=== PATIENT | female | born 1945 | race Caucasian/White ===

== ENCOUNTER → 2024-03-14 13:33 | Outpatient (REF) | payer MEDICARE, OTHER, SELFPAY | LOC: MRI 13:33 | PROVIDERS: ATTENDING PHYSICIAN Pain Medicine Interventional Pain Medicine; FAMILY PHYSICIAN Family Medicine | DX: M47.816 Spondylosis without myelopathy or radiculopathy, lumbar region (principal) | CPT/HCPCS: 72148 ==

== ENCOUNTER → 2024-07-11 06:21 | Day surgery (SDC) | payer MEDICARE, OTHER, SELFPAY | LOC: GI 06:21 | PROVIDERS: ATTENDING PHYSICIAN Internal Medicine Gastroenterology | DX: Z12.11 Encounter for screening for malignant neoplasm of colon (principal); D12.0 Benign neoplasm of cecum; D12.3 Benign neoplasm of transverse colon; Q43.8 Other specified congenital malformations of intestine; Z86.010 Personal history of colon polyps; Z80.0 Family history of malignant neoplasm of digestive organs | CPT/HCPCS: 45385; 88305 ==

== ENCOUNTER → 2024-08-03 09:13 | Outpatient (REF) | payer MEDICARE, OTHER, SELFPAY ==
[2024-08-03 10:27] LABS: % Basophils 0.7 % (0-2); % Eosinophils 0.9 % (0-6); % Immature Granulocytes 0.2 % (0-0.5); % Lymphocytes 36.9 % (20.5-51.1); % Monocytes 8.3 % (1.7-9.3); Absolute Eosinophils 0.1 10^3/uL (0-0.7); Absolute Lymphocytes 2.1 10^3/uL (1.2-3.4); Absolute Monocytes 0.5 10^3/uL (0.1-0.6); Hemoglobin 13.3 g/dL (12.0-16.0); Mean Corp Hgb Conc. 33.3 g/dL (33.0-37.0); Mean Corpuscular Hgb 31.1 pg (27.0-31.0); Mean Corpuscular Volume 93.5 fL (81.0-99.0); Mean Platelet Volume 10.3 fL (7.4-10.4); Nucleated Red Blood Cells % 0 %; Platelet Count 238 10^3/uL (130-400); Red Blood Cell Count 4.28 10^6/uL (4.20-5.40); Red Cell Dist. Width 12.6 % (11.5-14.5); White Blood Cell Count 5.7 10^3/uL (4.8-10.8)
[2024-08-03 10:52] LABS: ALT (SGPT) 20 U/L (0-35); AST (SGOT) 28 U/L (14-36); Albumin 4.2 g/dl (3.5-5.0); Alkaline Phosphatase 51 U/L (38-126); Blood Urea Nitrogen 20 mg/dl (7-17); Calcium 9.4 mg/dl (8.4-10.2); Carbon Dioxide 29 mmol/L (22-30); Chloride 104 mmol/L (98-107); Glucose 95 mg/dl (70-99); HDL Cholesterol 61 mg/dl; LDL Cholesterol, Calculated 146 mg/dl; Potassium 4.3 mmol/L (3.5-5.1); Sodium 142 mmol/L (135-145); Total Bilirubin 0.5 mg/dl (0.2-1.3); Total Cholesterol 226 mg/dl (50-199); Total Protein 7.2 g/dl (6.3-8.2); Triglyceride 98 mg/dl (10-149); Very Low Density Lipoprotein 19 mg/dl (0-30); eGFR > 60.00
== END ==
LOC: REG 09:13
PROVIDERS: ATTENDING PHYSICIAN Family Medicine
DX: I44.1 Atrioventricular block, second degree (principal); Z95.0 Presence of cardiac pacemaker; I10 Essential (primary) hypertension; Z13.220 Encounter for screening for lipoid disorders
CPT/HCPCS: 36415; 80053; 80061; 85025

== ENCOUNTER → 2024-08-22 13:05 | Outpatient (REF) | payer MEDICARE, OTHER, SELFPAY | LOC: HWWDC 13:05 | PROVIDERS: ATTENDING PHYSICIAN Family Medicine | DX: M81.0 Age-related osteoporosis without current pathological fracture (principal); Z12.31 Encounter for screening mammogram for malignant neoplasm of breast | CPT/HCPCS: 77063; 77067; 77080 ==

== ENCOUNTER → 2025-01-19 12:58 | Outpatient (REF) | payer MEDICARE, OTHER, SELFPAY | LOC: HWRCS 12:58 | PROVIDERS: ATTENDING PHYSICIAN Internal Medicine Cardiovascular Disease; FAMILY PHYSICIAN Family Medicine | DX: I44.1 Atrioventricular block, second degree (principal); I47.29 Other ventricular tachycardia | CPT/HCPCS: 93306 ==

== ENCOUNTER → 2025-04-04 16:27 | Outpatient (REF) | payer MEDICARE, OTHER, SELFPAY | LOC: RAD 16:27 | PROVIDERS: ATTENDING PHYSICIAN Family Medicine | DX: R14.0 Abdominal distension (gaseous) (principal); K59.00 Constipation, unspecified | CPT/HCPCS: 74019 ==

== ENCOUNTER 2025-05-05 06:22 | Day surgery (SDC) | payer MEDICARE, OTHER, SELFPAY | END 2025-05-05 10:31 | disposition home or self-care (01) | LOC: GI 06:22 | PROVIDERS: ATTENDING PHYSICIAN Internal Medicine Gastroenterology | DX: Z09 Encounter for follow-up examination after completed treatment for conditions other than malignant neoplasm (principal); K57.30 Diverticulosis of large intestine without perforation or abscess without bleeding; D12.2 Benign neoplasm of ascending colon; D12.5 Benign neoplasm of sigmoid colon; Z80.0 Family history of malignant neoplasm of digestive organs; Z86.0101 Personal history of adenomatous and serrated colon polyps | CPT/HCPCS: 45385; 88305 ==

== ENCOUNTER → 2025-07-12 09:52 | Outpatient (REF) | payer MEDICARE, OTHER, SELFPAY ==
[2025-07-12 10:55] LABS: ALT (SGPT) 22 U/L (0-35); AST (SGOT) 25 U/L (14-36); Albumin 4.2 g/dl (3.5-5.0); Alkaline Phosphatase 46 U/L (38-126); Blood Urea Nitrogen 15 mg/dl (7-17); Calcium 9.3 mg/dl (8.4-10.2); Carbon Dioxide 31 mmol/L (22-30); Chloride 105 mmol/L (98-107); Glucose 91 mg/dl (70-99); HDL Cholesterol 64 mg/dl; LDL Cholesterol, Calculated 136 mg/dl; Potassium 4.8 mmol/L (3.5-5.1); Sodium 139 mmol/L (135-145); Total Protein 7.2 g/dl (6.3-8.2); Very Low Density Lipoprotein 17 mg/dl (0-30); eGFR > 60.00
[2025-07-12 11:09] LABS: Vitamin D, 25-OH*** 61.8 ng/mL (30-80)
== END ==
LOC: REG 09:52
PROVIDERS: ATTENDING PHYSICIAN Family Medicine
DX: E78.00 Pure hypercholesterolemia, unspecified (principal); M81.0 Age-related osteoporosis without current pathological fracture; R79.89 Other specified abnormal findings of blood chemistry
CPT/HCPCS: 36415; 80053; 80061; 82306

== ENCOUNTER → 2025-08-07 13:02 | Outpatient (REF) | payer MEDICARE, OTHER, SELFPAY | LOC: HWWDC 13:02 | PROVIDERS: ATTENDING PHYSICIAN Family Medicine | DX: Z12.31 Encounter for screening mammogram for malignant neoplasm of breast (principal) | CPT/HCPCS: 77063; 77067 ==

== ENCOUNTER 2025-08-25 04:15 | Inpatient (IN) | payer MEDICARE, OTHER, SELFPAY ==
[2025-08-24 22:03] VITALS: BP 186/103
[2025-08-24 23:15] VITALS: BMI 25.4
[2025-08-24 23:21] LABS: Hematocrit 41.0 % (37.0-47.0); Hemoglobin 13.5 g/dL (12.0-16.0); Mean Corp Hgb Conc. 32.9 g/dL (33.0-37.0); Mean Corpuscular Volume 95.1 fL (81.0-99.0); Nucleated Red Blood Cells % 0 %; Platelet Count 243 10^3/uL (130-400); Red Cell Dist. Width 12.4 % (11.5-14.5)
[2025-08-24 23:45] LABS: ALT (SGPT) 51 U/L (0-35); AST (SGOT) 43 U/L (14-36); Albumin 4.2 g/dl (3.5-5.0); Alkaline Phosphatase 62 U/L (38-126); Blood Urea Nitrogen 14 mg/dl (7-17); Calcium 9.1 mg/dl (8.4-10.2); Carbon Dioxide 23 mmol/L (22-30); Chloride 100 mmol/L (98-107); Estimated Creatinine Clearance 67 ml/min; Glucose 116 mg/dl (70-99); Potassium 4.3 mmol/L (3.5-5.1); Sodium 133 mmol/L (135-145); Total Protein 7.3 g/dl (6.3-8.2); eGFR > 60.00
[2025-08-25] MEDS: NSS 1000 IV ×3 (00:18→17:06)
[2025-08-25 00:22] LABS: INR 0.96; PT 13.2 Sec (11.4-14.6)
[2025-08-25 00:23] LABS: APTT 23.3 Sec (23.4-35.0)
--- NOTE | 2025-08-25 00:26 | ED.GENMED ---
History of Present Illness
<ULISSES Wells Last Filed: 08/25/25 01:37>
General
Chief Complaint: Rectal Bleeding
Source: patient
Exam Limitations: none
Time Seen by Provider: 08/24/25 23:33
Nursing documentation reviewed up to this point in time: agreed with
History of Present Illness
History of Present Illness:
see MDM
Past History
<ULISSES Wells Last Filed: 08/25/25 01:37>
Past History
ED Past Medical History: Other (Osteoporosis, unilateral salpingo-oophorectomy)
Social History
Tobacco: Non-smoker
Alcohol: Occasional
Family History
Family History: Other (Mother with colon cancer)
Phy Exam
<ULISSES Wells Last Filed: 08/25/25 01:37>
Physical Exam
Physical Exam:
GENERAL: Alert , in no apparent distress
EYE: pupils equal and reactive
NECK: Supple
ENT: o/p clr, mmm.
CARDIAC: Regular rate and rhythm .
LUNGS: Clear breath sounds bilaterally, no acute respiratory distress, no wheezes/rales/rhonchi
ABDOMEN: Soft, without focal tenderness, no r/g, no cvat, normal bowel sounds
no guarding/rebound
rectal deferred, pt had witnessed GI bleed
NEUROLOGICAL: Alert and oriented, no focal neuro deficits
SKIN: Warm and dry, skin intact.
MUSCULOSKELETAL: No edema, well perfused. neg angelica's sign
PSYCH: Normal and appropriate interaction.
Course
<ULISSES Wells Last Filed: 08/25/25 01:37>
Orders/Labs/Results
Orders:
Orders
08/24/25 23:12
Type+Screen Urgent
CMP [Comprehensive Metabolic Panel] Urgent
Complete Blood Count/With Diff Urgent
08/24/25 23:24
Electrocardiogram (*1) Urgent
Reason for Study: Other
Other Reason for Exam: GI Bleed,Weakness
08/24/25 23:25
EKG- Treatment ONCE
08/24/25 23:50
IV Insert/Care/Rem.- Treatment PRN
Lactic Acid Urgent
PTT Urgent
Prothrombin Time Urgent
0.9% Sodium Chloride 1000 ml [Nss] 1,000 ml IV BOLUS
08/24/25 23:51
CT Abd/pelvis Angio W/wo Iv Urgent
Comment:
Reason For Exam: GI bleed, bright red
08/24/25 23:54
COVID-19 Antigen Urgent
Source: Nasal Swab
08/24/25 23:55
Influenza A+B Rapid Molecular Urgent
ANITRA Source: Nasal Swab
Specimen Description:
08/25/25 00:49
STOOL [C difficile Antigen & Toxins] Urgent
ANITRA Source: Feces/Stool
Specimen Description:
Stool Culture Urgent
ANITRA Source: Feces/Stool
Specimen Description:
Abnormal Lab Results
08/24/25 08/25/25 08/25/25
23:12 00:00 00:26
MCH 31.3 H pg
(27.0-31.0)
MCHC 32.9 L g/dL
(33.0-37.0)
Absolute Neuts (auto) 6.6 H 10^3/uL
(1.4-6.5)
APTT 23.3 L Sec
(23.4-35.0)
Sodium 133 L mmol/L
(135-145)
Glucose 116 H mg/dl
(70-99)
AST 43 H U/L
(14-36)
ALT 51 H U/L
(0-35)
SARS-CoV-2 Antigen Positive A
(Negative)
08/24/25 23:12
08/24/25 23:12
Vital Signs
Initial and Last Documented VS:
Initial Vital Signs
Temp Pulse BP Pulse Ox
36.9 C 95 186/103 96
08/24/25 22:03 08/24/25 22:03 08/24/25 22:03 08/24/25 22:03
Last Documented Vital Signs
Temp Pulse Resp BP Pulse Ox
36.9 C 87 20 134/82 97
08/24/25 22:03 08/25/25 01:17 08/25/25 01:17 08/25/25 01:17 08/25/25 01:17
<Orestes Muir, DO - Last Filed: 08/25/25 01:17>
Orders/Labs/Results
Orders:
Orders
08/24/25 23:12
Type+Screen Urgent
CMP [Comprehensive Metabolic Panel] Urgent
Complete Blood Count/With Diff Urgent
08/24/25 23:24
Electrocardiogram (*1) Urgent
Reason for Study: Other
Other Reason for Exam: GI Bleed,Weakness
08/24/25 23:25
EKG- Treatment ONCE
08/24/25 23:50
IV Insert/Care/Rem.- Treatment PRN
Lactic Acid Urgent
PTT Urgent
Prothrombin Time Urgent
0.9% Sodium Chloride 1000 ml [Nss] 1,000 ml IV BOLUS
08/24/25 23:51
CT Abd/pelvis Angio W/wo Iv Urgent
Comment:
Reason For Exam: GI bleed, bright red
08/24/25 23:54
COVID-19 Antigen Urgent
Source: Nasal Swab
08/24/25 23:55
Influenza A+B Rapid Molecular Urgent
ANITRA Source: Nasal Swab
Specimen Description:
08/25/25 00:49
STOOL [C difficile Antigen & Toxins] Urgent
ANITRA Source: Feces/Stool
Specimen Description:
Stool Culture Urgent
ANITRA Source: Feces/Stool
Specimen Description:
Abnormal Lab Results
08/24/25 08/25/25 08/25/25
23:12 00:00 00:26
MCH 31.3 H pg
(27.0-31.0)
MCHC 32.9 L g/dL
(33.0-37.0)
Absolute Neuts (auto) 6.6 H 10^3/uL
(1.4-6.5)
APTT 23.3 L Sec
(23.4-35.0)
Sodium 133 L mmol/L
(135-145)
Glucose 116 H mg/dl
(70-99)
AST 43 H U/L
(14-36)
ALT 51 H U/L
(0-35)
SARS-CoV-2 Antigen Positive A
(Negative)
08/24/25 23:12
08/24/25 23:12
Vital Signs
Initial and Last Documented VS:
Initial Vital Signs
Temp Pulse BP Pulse Ox
36.9 C 95 186/103 96
08/24/25 22:03 08/24/25 22:03 08/24/25 22:03 08/24/25 22:03
Last Documented Vital Signs
Temp Pulse Resp BP Pulse Ox
36.9 C 87 20 134/82 97
08/24/25 22:03 08/25/25 01:17 08/25/25 01:17 08/25/25 01:17 08/25/25 01:17
<Maribell Ramirez PA-C - Last Filed: 08/25/25 01:37>
MDM/Problems Addressed
Differential Diagnosis Includes:
see MDM
MDM/Problems Addressed:
Note:
CHIEF COMPLAINT(S)
Rectal bleeding and diarrhea.
HISTORY OF PRESENT ILLNESS
The patient is a 80-year-old female h/o pacer, HTN, HLD who presented with rectal bleeding and diarrhea. She had a COVID-19 vaccination on August 16, during which she initially experienced mild symptoms resembling a cold, including a scratchy
throat. By the end of the week, the patient reported feeling worse without significant fever, although she experienced sinus pressure and a cough. she hasn't really been feeling much worse. today around 2 PM, the patient developed sudden abdominal
pain, followed by nonbloody large episode of diarrhea. she had cramps all day long and then later had an episode at 9 PM with all blood (about 2 tbsp) in the toilet x 2 prompting her visit. She also mentioned a recent history of hemorrhoids.
She denies any significant history of diverticulitis but confirmed having benign polyps removed during a colonoscopy. She experiences no current rectal pain but reported an episode of sinus pressure affecting her appetite. She denies taking aspirin
or blood thinners but is on blood pressure medication and has a pacemaker.
PAST MEDICAL AND SURGICAL HISTORY
The patient has a history of hypertension and a pacemaker insertion, related to experiencing [id number] episodes due to partial conduction blockage.
MEDICATIONS
The patient is taking blood pressure medications and has used Tylenol Cold and Flu recently. She denies taking any aspirin or non-steroidal anti-inflammatory drugs.
PHYSICAL EXAM
- Nursing notes reviewed, and vital signs reviewed.
- Abdominal examination is remarkable for pain with diarrhea but no current tenderness reported by the patient.
- Additional physical findings were not specifically detailed in the discussion.
PROBLEM LIST
Acute:
- Rectal bleeding
- Diarrhea
Chronic:
- Hypertension
PLAN
The patient will undergo a computed tomography (CT) scan to identify any possible sources of active bleeding and evaluate for diverticular disease. Blood tests, including a complete blood count and coagulation profile, will be conducted to rule out
ischemic colitis and assess overall health status. The patient will be monitored overnight for any changes in her condition or further bleeding. Intravenous fluids will be provided to maintain hydration. Pain management will be addressed if the
patient reports significant discomfort; however, ibuprofen and other non-steroidal anti-inflammatory drugs will be avoided to prevent exacerbation of bleeding symptoms. Gastroenterology consultation may be pursued if indicated by scan results or
further clinical observations.
DIFFERENTIAL DIAGNOSIS
The Differential Diagnosis includes, in no particular order and is not limited to:
1. Diverticular bleeding
2. Colitis (viral or bacterial)
3. Ischemic colitis
4. Hemorrhoidal bleeding
5. Gastrointestinal infection (viral or bacterial)
6. Peptic ulcer disease
7. Angiodysplasia
8. Colon cancer
9. Inflammatory bowel disease
10. Anal fissure
80 y/o F
htn, hld, pacer
no AC
no asa
here with rectal bleeding, abd pain
uri sxs 10 days ago unaware she has covid
pt says she started with nonbloody diarrhea this afternoon and then had rectal bleeding x 2 small episodes
stable vitals
RN witnessed large episode here with soaking pants and large in the toilet
hg 13.5
ct shows colitis descedngin colon (lactic normal) but maybe small area of extrav
dr. horne aware
admit
\\
08/25/25 - 01:05
The patient reports a recent episode of bleeding, with blood soaking a pad, occurring approximately 30 minutes prior to the assessment. The hemoglobin level remains normal, indicating no acute anemia at this time. The patient tested positive for
COVID-19 and has been symptomatic since the , which might have contributed to viral-induced diarrhea, potentially explaining the colitis and bleeding. The lactic acid test is normal, making ischemic colitis less likely. Admission for further
monitoring of blood pressure, blood counts, and potential further investigations by GI is planned. Despite the bleeding, the patient is currently stable, and there is no immediate need for emergent intervention.
<Maribell Ramirez PA-C - Last Filed: 10/31/25 01:37>
*Pulse Oximetry
SaO2: 96
Oxygen Mode of Delivery: Room air
Patient hypoxic: no (97)
*Critical Care Note
Total Time (30-74mins, 75-104mins- exclusive of procedures): Not Applicable
ED Attending Note
<Maribell Ramirez PA-C - Last Filed: 08/25/25 01:37>
-
Portions of this chart may have been created with voice recognition software.� Occasional wrong word or��sound alike� substitutions may have occurred due to the inherent limitations of voice recognition software.
<Orestes Muir DO - Last Filed: 08/25/25 01:17>
ED Attending Note
Patient seen and examined by attending physician: Yes
I performed the substantive portion of visit, reviewed & personally made and approve the management plan that is documented in note by myself or ISABEL.: Yes
ED Attending Note:
72-year-old female presents with GI bleeding. CT angiogram shows questionable enhancing mucosa versus small amount of active extravasation. Hemoglobin and blood pressure remain stable at this time but will monitor closely. Admit.
Discharge Plan
Departure
Patient Disposition: Admit
Date of Disposition: 08/25/25
Time of Disposition: 00:47
Admit to: Med/Surg
Presentation/result/management discussed w/ accepting MD/DO: Hospitalist
Condition: Fair
Covid-19: Not Applicable
Discharge Problem:
Colitis, GI bleed
Prescriptions:
No Action
calcium carbonate-vitamin D3 1 EACH tablet
2 ea PO DAILY
nbfndvyugesa-bfwe-zwkym acid [Centrum] 1 EACH tablet
1 ea PO DAILY
aspirin [Aspir-Low] 81 MG tablet,delayed release (DR/EC)
81 mg PO DAILY Qty: 0 0RF
Rx Instructions:
HOLD post procedure- OK to resume on Thursday, 01/11 in AM
Referrals:
Brianne Garcia MD [Family Provider, Family Practice]
Interventions
Interventions:
*Risk Screen - Suicide Last Done: 08/24/25 22:10
*General Assessment Last Done: 08/24/25 23:18
*Neglect/Abuse Screening Last Done: 08/24/25 22:10
*ED- Fall Risk Assessment Last Done: 08/24/25 23:18
*ED COVID-19 Vaccine History Last Done: 08/24/25 23:17
*ED Influenza Vaccine History Last Done: 08/24/25 23:17
NF-Vjqvin-Lcxxaktznh Assessment Last Done: 08/24/25 23:41
ED- Cardiac Assessment Last Done: 08/24/25 23:38
ED- Pulmonary Assessment Last Done: 08/24/25 23:39
Discharge Date and Time
Print Language: KAZAKH
[2025-08-25 00:47] LABS: COVID-19 Antigen Positive (Negative)
[2025-08-25 01:17] VITALS: BP 134/82
--- NOTE | 2025-08-25 04:06 | HPS.HSE ---
Family Physician
-
Family Physician: Brianne Garcia
Chief Complaint
-
Abd Pain, Bloody Stools
History of Present Illness
Patient is a 80y F with PMH significant for AV block and colon polyps who presents to ED complaining of crampy abdominal pain and bloody diarrhea. Patient states that her symptoms started this afternoon. She had two episodes of crampy abdominal
pain followed by loose stools. On the second episode (around 8PM) she felt that she passed mostly bright red blood with very little stool. No fevers / chills. No N/V. No recent travel or unusual food exposures.
Patient also reports 'cold symptoms' for about one week. She had COVID booster on 08/16. She had already had a 'scratchy throat' at that time. She has since had some nasal / sinus congestion, mild headache and mild / non-productive cough.
Today in the ED she tested positive for COVID-19.
Medical History
Past Medical History
Past Medical History: Reports Other
Additional Past Medical History:
AV Block
Osteoporosis
Past Surgical History: Reports Other
Additional Past Surgical History:
PPM Placement
Social History
Tobacco: Non-smoker
Alcohol: None
Drug: None
Family History
Family History: Other (Mother: Colon Cancer)
Allergies / Home Medications
Allergies reflects when Allergies were last updated in [facility].
Home Medications with original date entered in [facility]
Allergy/Medication List:
Allergies
Allergy/AdvReac Type Severity Reaction Status Date / Time
NKA - No Known Allergies Allergy Unknown Uncoded 08/24/25 22:09
Home Medications
calcium 500 mg (as carbonate)-vitamin D3 3.125 mcg (125 unit) tablet 2 ea PO DAILY 01/06/18
multivitamin-ferrous fumarate-folic acid 18 mg-400 mcg tablet (Centrum) 1 ea PO DAILY 03/14/18
aspirin 81 mg tablet,delayed release (Aspir-Low) 81 mg PO DAILY ##0 01/08/18
Vitamin Daily 250 mcg PO DAILY 08/25/25
carvedilol 12.5 mg tablet 12.5 mg PO BID 08/25/25
Review of Systems
-
History Source: Patient
A 12 point ROS was completed and negative except as noted: Yes
Constitutional: Denies Fever, Fatigue or Chills
EENT: Reports Sore Throat
Respiratory: Reports Cough; Denies Trouble Breathing
Cardiac: Denies Chest Pain or Palpitations
Abdomen/GI: Reports Abdominal Pain, Diarrhea and Bloody Stools; Denies Nausea or Vomiting
: Denies Dysuria or Frequency
Musculoskeletal: Denies Joint Pain or Edema
Neurological: Denies Dizzy or Headache
Physical Exam
Vital Signs
Vital Signs
Temp Pulse Resp BP Pulse Ox
98.5 F 87 20 134/82 96
08/24/25 22:03 08/25/25 01:17 08/25/25 01:17 08/25/25 01:17 08/25/25 02:04
Physical Exam
General: Other (80y F in no acute distress.)
HEENT: Moist mucous membranes
Respiratory: Clear; No Wheezes, Rales or Rhonchi
Cardiac: S1/S2 and Regular Rhythm; No Murmur
GI: Soft, Non Tender, Non Distended and Normal Bowel Sounds
Musculoskeletal: No Clubbing, No Cyanosis and No Edema
Neuro: AO x 3
Laboratory Results
-
08/24/25 23:12
08/24/25 23:12
Laboratory Results
PT 13.2 Sec (11.4-14.6) 08/25/25 00:00
INR 0.96 08/25/25 00:00
APTT 23.3 Sec (23.4-35.0) L 08/25/25 00:00
Lactic Acid 0.8 mmol/L (0.7-2.0) 08/25/25 00:00
Total Bilirubin 0.7 mg/dl (0.2-1.3) 08/24/25 23:12
AST 43 U/L (14-36) H 08/24/25 23:12
ALT 51 U/L (0-35) H 08/24/25 23:12
Alkaline Phosphatase 62 U/L (38-126) 08/24/25 23:12
Impression/Plan
-
A/P: Patient is a 80y F with PMH significant for AV block and osteoporosis who presents to ED complaining of crampy abdominal pain and bloody diarrhea.
Descending Colitis
BRBPR secondary to the above
- Admit for further evaluation and treatment.
- ? infectious versus ischemic colitis.
- Normal BP, lactate, etc makes ischemic less likely.
- Empiric abx for now. Follow-up stool culture results.
- IVF / supportive care.
- Follow for clinical improvement.
- GI consulted in ED.
- Hgb stable - follow for any changes.
COVID-19 Infection
- Unclear relevance to current presentation.
- Has had URI symptoms for 7-10 days.
- Afebrile, not hypoxemic. No subjective dyspnea, etc.
- Will maintain precautions overnight - but suspect patient is outside the window for necessary isolation.
- No role for any COVID-specific therapies at present.
AV Block
- Stable. s/p PPM Placement.
- Continue carvedilol.
DVT Prophylaxis: SCDs
Code Status: Full
[2025-08-25] MEDS: ZOSYN 50 IV ×4 (05:34→22:53)
[2025-08-25 06:22] LABS: Hematocrit 39.1 % (37.0-47.0); Hemoglobin 13.3 g/dL (12.0-16.0); Mean Corp Hgb Conc. 34.0 g/dL (33.0-37.0); Mean Corpuscular Volume 94.4 fL (81.0-99.0); Platelet Count 252 10^3/uL (130-400); Red Cell Dist. Width 12.5 % (11.5-14.5)
--- NOTE | 2025-08-25 06:36 | CON.GI ---
Addendum entered and electronically signed by Armando Latif MD 08/25/25 10:10:
Patient seen and examined, agree with nurse practitioner note. The patient is a 80-year-old female past medical history as noted presents with acute onset of abdominal crampy pain and bloody diarrhea. She not been feeling well for about a week,
with some URI symptoms. She does have a longstanding history of constipation and has been moving her bowels well recently. She drinks a large amount of water during the day and is overall been feeling well GI blair until acutely developed severe
left-sided pain initially with diarrhea then bloody diarrhea. CT scan showed changes consistent with colitis in the left colon there widely patent arteries. She denies any sick contacts or recent antibiotics. She is now feeling much better
overall, with only minimal discomfort, no large-volume of bloody diarrhea. On admission her hemoglobin was normal and repeat remains normal and has remained hemodynamically stable throughout. On exam she has some mild left-sided tenderness though
no rebound or guarding. She is followed with Dr. Salcedo chronically for constipation which has been doing well, last colonoscopy earlier this year with few small polyps, otherwise unremarkable.
1. Colitis: Acute, likely infectious versus watershed ischemia. CTA with widely patent vessels. At this point she is doing better, with improved symptoms, stable hemoglobin and nontoxic exam. Will continue antibiotics for now, supportive care,
IV fluids, trend labs, liquid diet and await stool studies. If continues to improve likely will be able to advance diet tomorrow.
Original Note:
Consultation
-
Date/Time Consultation Requested: 08/25/25 0500
Date/Time Consultation Performed: 08/25/25 0750
Requesting Provider: Deep Rico DO
Performing Provider: ELIGIO Jaramillo, Jeremy Latif MD
Reason for Consultation: rectal bleeding
Medical History
Chief Complaint / HPI
Chief Complaint: rectal bleeding, abdominal pain
History of Present Illness:
Pt is a 80yo with hx osteoporosis, AV block with pacer, diverticulosis, hemorrhoids, colon polyps, family hx colon CA with onset of crampy abdominal pain and blood diarrhea. Pt also reported cold symptoms for 1 week and was noted + covid on
admission. Preliminary CT angio with mild to moderate thickening descending colon with concern for colitis infectious, less likely IBD vs ischemic. High density within lumen of descending colon unclear if enhancement or extravasation no brisk
extravasation. mild bladder thickening decompressed vs cystitis with final reading descending colitis patent mesenteric arteries, comp fracture and lung nodule. Labs on admission otherwise notable for stable CBC with normal WBC 9,100 and hbg 13.5,
with mild LFT elevation of bili 0.7, AST 43, ALT 51, alk phos 62.
In review with patient she admit to chronic constipation. She initially was on metamucil but now has been using Miralax as needed. She began 08/24 with onset of pain then large amount of brown stool that was loose then all blood with continued
episodes after admission. She denies hx colitis in past. No recent travel, abx, sick contacts or tainted foods. She admits to some nausea without vomiting and pain was up to 10/10 prior to admission and crampy in nature now 02/02 but continued
passage of blood and now feeling of blood dripping out. She denies any issue with dysphagia, GERD, vomiting, diarrhea, or black stools. No NSAID or anticoagulation use.
Colonoscopy: 05/05/25 ryanapati diverticulosis, 2-3mm polyp AC, and 2 - 3mm polyp sigmoid bx TA, IH, diverticulosis in sigmoid
colonoscopy: 07/11/24 mekapati - One 20 mm polyp in the proximal transverse colon removed piecemeal using a cold snare.- One 10 mm polyp in the cecum, removed with a cold snare. bx Sessile serrated lesion x 2
Past Medical History
Past Medical History: Arrhythmias (AV heart block) and Other (osteoporosis , colon polyps, diverticulosis, hemorrhoids )
Past Surgical History: Cardiac (pacer)
Social History
Tobacco: Non-Smoker
Alcohol: None
Drug: None
Living: Alone
Employment: Retired
Family History
Family History: Other (mother with colon CA)
Allergies / Home Medications
Allergy/AdvReac Type Severity Reaction Status Date / Time
NKA - No Known Allergies Allergy Unknown Uncoded 08/24/25 22:09
�Medication �Instructions �Recorded
calcium 500 mg (as 2 ea PO DAILY 01/06/18
carbonate)-vitamin D3 3.125 mcg
(125 unit) tablet
multivitamin-ferrous 1 ea PO DAILY 01/06/18
fumarate-folic acid 18 mg-400 mcg
tablet (Centrum)
aspirin 81 mg tablet,delayed 81 mg PO DAILY ##0 01/08/18
release (Aspir-Low)
Vitamin Daily 250 mcg PO DAILY 08/25/25
carvedilol 12.5 mg tablet 12.5 mg PO BID 08/25/25
Review of Systems
-
History Source: Patient
Constitutional: Reports No Symptoms
EENT: Reports No Symptoms
Respiratory: Reports Other (recent congestion)
Cardiac: Reports No Symptoms
Abdomen/GI: Reports Abdominal Pain, Nausea, Diarrhea, Constipated (prior to onset ) and Bloody Stools
: Reports No Symptoms
Musculoskeletal: Reports No Symptoms
Skin: Reports No Symptoms
Neurological: Reports Weakness
Endocrine: Reports No Symptoms
Hematologic/Lymphatic: Reports Bleeding
Vital Signs
Temp Pulse Resp BP Pulse Ox
98.5 F 87 20 134/82 96
08/24/25 22:03 08/25/25 01:17 08/25/25 01:17 08/25/25 01:17 08/25/25 02:04
Physical Exam
Exam
General: Well Developed, Well Nourished and No Apparent Distress
HEENT: Normocephalic
Respiratory: Clear
Cardiac: Regular Rhythm
GI: Soft, Non Distended and Tender (minimal lower tenderness )
Rectal: Hem Positive (red blood in rectal area and internal red blood, very small purplish hue around hemorrohoid, small amount red blood on pad )
Musculoskeletal: No Clubbing and No Cyanosis
Skin: Warm and Dry
Neuro: Awake, Alert and AO x 3
Psych: Calm
Results
WBC 8.4 10^3/uL (4.8-10.8) 08/25/25 05:41
Hgb 13.3 g/dL (12.0-16.0) 08/25/25 05:41
Hct 39.1 % (37.0-47.0) 08/25/25 05:41
MCV 94.4 fL (81.0-99.0) 08/25/25 05:41
Plt Count 252 10^3/uL (130-400) 08/25/25 05:41
Absolute Neuts (auto) 6.6 10^3/uL (1.4-6.5) H 08/24/25 23:12
PT 13.2 Sec (11.4-14.6) 08/25/25 00:00
INR 0.96 08/25/25 00:00
APTT 23.3 Sec (23.4-35.0) L 08/25/25 00:00
Sodium 133 mmol/L (135-145) L 08/24/25 23:12
Potassium 4.3 mmol/L (3.5-5.1) 08/24/25 23:12
Chloride 100 mmol/L (98-107) 08/24/25 23:12
Carbon Dioxide 23 mmol/L (22-30) 08/24/25 23:12
BUN 14 mg/dl (7-17) 08/24/25 23:12
Creatinine 0.6 mg/dL (0.6-1.0) 08/24/25 23:12
Calcium 9.1 mg/dl (8.4-10.2) 08/24/25 23:12
Total Bilirubin 0.7 mg/dl (0.2-1.3) 08/24/25 23:12
AST 43 U/L (14-36) H 08/24/25 23:12
ALT 51 U/L (0-35) H 08/24/25 23:12
Alkaline Phosphatase 62 U/L (38-126) 08/24/25 23:12
Diagnostic Image Results:
Preliminary CT angio with mild to moderate thickening descending colon with concern for colitis infectious, less likely IBD vs ischemic. High density within lumen of descending colon unclear if enhancement or extravasation no brisk extravasation.
08/25/25 CT angio final
1. Moderate wall thickening and inflammatory change recent to the descending colon, consistent with colitis. Colitis may be infectious or inflammatory. Given location of the colitis, ischemic colitis is not excluded, although the mesenteric arteries
are widely patent.
2. Compression fracture involving the superior endplate of L2, which may be acute or chronic. Please correlate for symptoms in this area.
3. 3 mm lung nodule within the right middle lobe. As per Fleischner Society recommendations, no further CT follow-up is required unless the patient is high risk for lung carcinoma, in which case a follow-up chest CT should be considered in
approximately 12 months.
Prior GI Procedures:
EGD- none
Colonoscopy: 05/05/25 mekapati - Diverticulosis in the sigmoid colon.
- Two 3 mm polyps in the ascending colon, removed with
a cold snare. Resected and retrieved.
- Two 3 mm polyps in the sigmoid colon, removed with a
cold snare. Resected and retrieved.
- Internal hemorrhoids.
bx TA x 2
colonoscopy: 07/11/24 mekapati
- One 20 mm polyp in the proximal transverse colon,
removed piecemeal using a cold snare. Resected and
retrieved.
- One 10 mm polyp in the cecum, removed with a cold
snare. Resected and retrieved.
bx Sessile serrated lesion x 2
Assessment / Plan
-
Pt is a 80yo with hx osteoporosis, AV block with pacer, diverticulosis, hemorrhoids, colon polyps, family hx colon CA with onset of crampy abdominal pain and blood diarrhea. Pt also reported cold symptoms for 1 week and was noted + covid on
admission. Preliminary CT angio with mild to moderate thickening descending colon with concern for colitis infectious, less likely IBD vs ischemic. High density within lumen of descending colon unclear if enhancement or extravasation no brisk
extravasation. mild bladder thickening decompressed vs cystitis with final reading descending colitis patent mesenteric arteries, comp fracture and lung nodule. Labs on admission otherwise notable for stable CBC with normal WBC 9,100 and hbg 13.5,
with mild LFT elevation of bili 0.7, AST 43, ALT 51, alk phos 62. In review with patient she admit to chronic constipation. She initially was on metamucil but now has been using Miralax as needed. She began 08/24 with onset of pain then large
amount of brown stool that was loose then all blood with continued episodes after admission. She denies hx colitis in past. No recent travel, abx, sick contacts or tainted foods. She admits to some nausea without vomiting and pain was up to 10/10
prior to admission and crampy in nature now 02/02 but continued passage of blood and now feeling of blood dripping out.
Colonoscopy: 05/05/25 mekapati diverticulosis, 2-3mm polyp AC, and 2 - 3mm polyp sigmoid bx TA, IH, diverticulosis in sigmoid
colonoscopy: 07/11/24 mekapati - One 20 mm polyp in the proximal transverse colon removed piecemeal using a cold snare.- One 10 mm polyp in the cecum, removed with a cold snare. bx Sessile serrated lesion x 2
-rectal bleeding with crampy abdominal pain
-CT with mild to moderate descending colitis with some density descending colon
-covid +
-mild LFT elevation
other med problems:
-osteoporosis
- AV block with pacer
-diverticulosis
-hemorrhoids
-colon polyps
family hx colon CA
PLAN:
Etiology of colitis related to infectious etiology, ischemic vs other -- with large volume of blood diverticular bleed in differential but noted with pain so less likely , hx colon x 2 last years stable -- IBD also less likely
CTA as noted
stool studies pending to be sent
IV Zosyn
monitor hbg with is currently stable and stool pattern
if continued bleeding consider flex
repeat LFT's in AM with mild elevation this am
clear diet as tolerated
on discharge consider bowel regiment with chronic constipation prior to admission
cont covid management per medical team - symptoms currently stable
-
-
Thank you for consultation and allowing me to participate in the patient's care. Please call the campus receptionist GI physician during the after hours with any questions or concerns.
[2025-08-25 06:44] LABS: Blood Urea Nitrogen 10 mg/dl (7-17); Calcium 8.9 mg/dl (8.4-10.2); Carbon Dioxide 28 mmol/L (22-30); Chloride 104 mmol/L (98-107); Estimated Creatinine Clearance 67 ml/min; Glucose 98 mg/dl (70-99); Potassium 4.0 mmol/L (3.5-5.1); Sodium 139 mmol/L (135-145); eGFR > 60.00
[2025-08-25 06:54] VITALS: BP 130/68
[2025-08-25] MEDS: COREG 12.5 MG PO ×2 (08:50→20:00)
--- NOTE | 2025-08-25 10:06 | CM ---
Reviewed chart and spoke with patient at bedside
Lives in a 2 story home alone. 12 years ago and she would like to stay in the same house since they built together
[address] and bathroom on the first floor
PLOF : Independent with ADLs, drives and watches her grandchildren
3 dtrs Kassy, Cynthia and Soraya all live locally and they are very supportive
DME SPC in case
PCP Dr. Brianne Garcia
RX plan yes
Pharmacy [facility] [address]
no hx of VN no hx of SNF
DCP is to return back home but will assess at dc time
Dtrs can provide transportation at DC
Patient has no questions and is agreeable with plan
CM will continue to follow up for any dcp needs
[2025-08-25] MEDS: TYLENOL 650 MG PO (11:22)
[2025-08-25 12:08] VITALS: BP 121/59
[2025-08-25 12:10] VITALS: BMI 24.1
[2025-08-25 14:45] VITALS: BP 135/63
--- NOTE | 2025-08-25 17:35 | VATNOTE ---
08/25 @ 1228 - received call to restart peripheral IV d/t LUE IVF infiltration. grossly infiltrated to LUE with NSS. warm compress applied. Will continue to monitor.
[2025-08-25 19:10] VITALS: BP 123/72
[2025-08-25 22:53] VITALS: BP 132/60
[2025-08-26 03:33] VITALS: BP 131/57
[2025-08-26] MEDS: NSS 1000 IV (05:36)
[2025-08-26] MEDS: ZOSYN 50 IV ×2 (05:38→13:08)
[2025-08-26] MEDS: TYLENOL 650 MG PO ×2 (05:50→13:08)
[2025-08-26 06:02] LABS: Hematocrit 34.0 % (37.0-47.0); Hemoglobin 11.5 g/dL (12.0-16.0); Mean Corp Hgb Conc. 33.8 g/dL (33.0-37.0); Mean Corpuscular Volume 95.0 fL (81.0-99.0); Platelet Count 205 10^3/uL (130-400); Red Cell Dist. Width 12.8 % (11.5-14.5)
[2025-08-26 06:32] LABS: ALT (SGPT) 34 U/L (0-35); AST (SGOT) 24 U/L (14-36); Albumin 3.0 g/dl (3.5-5.0); Alkaline Phosphatase 48 U/L (38-126); Blood Urea Nitrogen 4 mg/dl (7-17); Calcium 8.1 mg/dl (8.4-10.2); Carbon Dioxide 26 mmol/L (22-30); Chloride 110 mmol/L (98-107); Estimated Creatinine Clearance 70 ml/min; Glucose 88 mg/dl (70-99); Potassium 3.5 mmol/L (3.5-5.1); Sodium 140 mmol/L (135-145); Total Protein 5.7 g/dl (6.3-8.2); eGFR > 60.00
[2025-08-26 07:30] VITALS: BP 131/63
[2025-08-26] MEDS: COREG 12.5 MG PO (08:27)
--- NOTE | 2025-08-26 08:59 | W.PN.GI.CBS2 ---
Today's Communication / Plan
-
Please see assessment and plan for details.
Assessment / Plan
-
1. Colitis: Unclear etiology, possibly watershed ischemia versus infectious, though now much improved with no further significant symptoms, stool studies negative so far. At this point we will advance diet and if she tolerates is okay to DC from a
GI standpoint without antibiotics.
Subjective
Subjective
Date of Service: August 26, 2025
Patient feeling much better overall, much less diarrhea, no blood, no significant Pancho pain, no fevers or chills overnight. She tolerated clears without difficulty.
Objective
Data Reviewed
Laboratory Data:
Laboratory Results
08/26/25 05:37
08/26/25 05:37
Laboratory Results
PT 13.2 Sec (11.4-14.6) 08/25/25 00:00
INR 0.96 08/25/25 00:00
APTT 23.3 Sec (23.4-35.0) L 08/25/25 00:00
Total Bilirubin 0.5 mg/dl (0.2-1.3) 08/26/25 05:37
AST 24 U/L (14-36) 08/26/25 05:37
ALT 34 U/L (0-35) 08/26/25 05:37
Alkaline Phosphatase 48 U/L (38-126) 08/26/25 05:37
Vital Signs and I&O:
Vital Signs
Temp Pulse Resp BP Pulse Ox
97.7 F 62 16 131/63 94
08/26/25 07:30 08/26/25 07:30 08/26/25 07:30 08/26/25 07:30 08/26/25 07:30
I&O
08/25/25 08/26/25 08/27/25
06:59 06:59 05:59
Intake Total 3040 / 3040
Balance 3040 / 3040
Physical Exam
Physical Exam
General: NAD
Abdomen: normal bowel sounds, soft, minimal left-sided tenderness, no masses or bruits, no ascites
[2025-08-26 11:27] VITALS: BP 130/64
--- NOTE | 2025-08-26 13:22 | W.DCSUMMARY ---
Discharge Summary
Discharge Data
Date of Admission: 08/25/25
Date of Discharge: 08/26/25
-
Pending Results: No
Hospital Course
Discharging Physician : Dr Anderson Martínez
Disposition : To home
Primary care physician : Dr Brianne Garcia
Principal Discharge diagnosis :
Left-sided colitis
COVID-19 viral infection
Bright red blood in stool
Chronic Discharge diagnosis :
History of atrioventricular block
Essential hypertension
Physical examination:
HEENT: moist mucus membrane
Chest: Clear to auscultation
Heart: N s1/s2, RRR, no murmur
Abd: N BS, soft, nontender, nondistended, no organomegaly
Neuro: No motor or sensory deficits,
Ext: No edema
Hospital Course :
Patient is a 80-year-old female with above-mentioned past medical history came to ER with new onset of abdominal pain and bloody diarrhea. Symptoms were sudden onset in nature. Denied of having any previous history of similar problems in the past.
Patient was having some cold symptoms as well and was checked for COVID in ER and was positive. Patient did not have any pulmonary symptoms. A CT abdomen pelvis was done showing moderate thickening and rapid changes on descending colon,
suggestive of colitis. Patient was started on empiric antibiotics. Stool studies were sent and was negative for bacterial infection/Cryptosporidium/Giardia/C. difficile. Patient had rapid improvement in symptoms and GI recommended for patient to
be discharged off of antibiotic. No further episodes of bleeding happened and patient hemoglobin counts were stable. Gastroenterology recommended patient to be following up with GI in the office.
Important imaging findings :
None
Procedure findings :
None
Discharge Plan
-
Patient Disposition: Home (Routine Discharge)
Discharge Diagnosis/Procedures: Left sided colitis, COVID 19 infection
Condition: Fair
Diet: Regular
Activity: As tolerated
Driving Restrictions: As prior to admission
Bathing Restrictions: OK to Shower
Referrals:
Brianne Garcia MD [Family Provider, [facility]] - in one week
Prescriptions:
Continued
calcium carbonate-vitamin D3 1 EACH tablet
2 tab PO DAILY
therapeutic multivitamin Tablet
1 tab PO DAILY
carvedilol 12.5 mg tablet
12.5 mg PO BID
latanoprost 0.005 % Drops
1 drp BOTH EYES HS
Discharge Orders:
Discharge Patient (As Directed); Ordered 08/26/25
Ordered By: Anderson Martínez
Discharge Date and Time
Print Language: CHADIAN
[2025-08-26] MEDS: NSS IV (14:08)
--- NOTE | 2025-08-26 14:39 | CM ---
F/U: Patient is discharging and there is no communication or indication that there is any discharge needs. PLAN: Home No Needs.
[2025-08-26 15:25] VITALS: BP 114/53
== END 2025-08-26 16:11 | disposition home or self-care (01) | DRG 385 ==
LOC: 2 NORTH 04:15
PROVIDERS: Nurse Practitioner Adult Health; Physician Assistant; ADMITTING PHYSICIAN Hospitalist; ATTENDING PHYSICIAN Hospitalist; CONSULT PHYSICIAN Internal Medicine Gastroenterology; EMERGENCY PHYSICIAN Emergency Medicine; FAMILY PHYSICIAN Family Medicine
DX: K51.511 Left sided colitis with rectal bleeding (principal); U07.1 COVID-19; I44.30 Unspecified atrioventricular block; I10 Essential (primary) hypertension; M81.0 Age-related osteoporosis without current pathological fracture; E78.5 Hyperlipidemia, unspecified; K57.30 Diverticulosis of large intestine without perforation or abscess without bleeding; K59.09 Other constipation; K64.8 Other hemorrhoids; Z79.82 Long term (current) use of aspirin; Z79.899 Other long term (current) drug therapy; Z95.0 Presence of cardiac pacemaker
CPT/HCPCS: 74174; 80048; 80053; 83605; 85025; 85027; 85610; 85730; 86850; 86900; 86901; 87045; 87046; 87324; 87328; 87329; 87427; 87449; 87502; 87811; 89055; 93005; 96360; 96361; 99285; Q9967